=== PATIENT | female | born 1960 | race Two or more races ===

== ENCOUNTER 2021-12-24 05:42 | Emergency (ER) | payer MEDICAID ==
[~2021-12-24] VITALS: Ht 170.2 cm; Wt 68.0 kg
[2021-12-24] MEDS ORDERED: cloNIDine HCL 0.1 MG TAB PO ONE (06:45)
[2021-12-24 07:01] LABS: Basophils # (auto) 0.1 10 ^3/uL (0-0.2); Basophils % (auto) 0.9 % (0.0-2.0); Eosinophils # (auto) 0.2 10 ^3/uL (0-0.8); Hematocrit 43.8 % (36.0-46.0); Lymphocytes # (auto) 1.8 10 ^3/uL (0.4-5.4); Lymphocytes % (auto) 23.9 % (10.0-50.0); Mean Corpuscular Hemoglobin 29.1 pg (28.0-32.0); Mean Corpuscular Hgb Conc. 34.2 g/dL (32.0-36.0); Mean Corpuscular Volume 85.2 fL (80.0-100.0); Monocytes # (auto) 0.6 10 ^3/uL (0-1.3); Monocytes % (auto) 7.6 % (0.0-12.0); Neutrophils # (auto) 4.9 10 ^3/uL (1.6-8.6); Neutrophils % (auto) 64.6 % (37.0-80.0); Nucleated Red Blood Cells % 0.1 %; Red Blood Cells 5.14 10^6/uL (4.0-5.20); White Blood Cell 7.6 10^3/uL (4.4-10.8)
[2021-12-24 07:12] LABS: Albumin 4.1 g/dL (3.4-5.0); BUN/Creatinine Ratio 12.7; Calcium 8.9 mg/dL (8.5-10.1); Magnesium 2.5 mg/dL (1.6-2.6); Potassium 3.6 mmol/L (3.5-5.1)
[2021-12-24 07:15] LABS: Bilirubin, Total 0.6 mg/dL (0.2-1.0); Total Protein 7.6 g/dL (6.4-8.2)
[2021-12-24 07:25] LABS: INR 0.97 (0.9-1.15)
[2021-12-24 08:01] LABS: Urine Bacteria MANY /hpf (None Seen); Urine Blood Negative /uL (Negative); Urine Specific Gravity 1.006 (1.001-1.035); Urine WBC 1 /hpf (0 - 5)
[2021-12-24] MEDS ORDERED: LOSA25TA38 PO (08:17)
[2021-12-24 08:45] VITALS: BP 152/94
== END 2021-12-24 08:56 | disposition home or self-care (01) ==
LOC: ER 05:42 → EDBD 05:42 → ER 08:56
DX: I16.0 Hypertensive urgency (principal); E78.5 Hyperlipidemia, unspecified; Z90.49 Acquired absence of other specified parts of digestive tract; Z90.710 Acquired absence of both cervix and uterus; Z90.89 Acquired absence of other organs
CPT/HCPCS: 36415; 70450; 71045; 80053; 81001; 83735; 84484; 85025; 85610; 85730; 93005

== ENCOUNTER 2022-01-09 23:53 | Inpatient (IN) | payer MEDICAID ==
[~2022-01-09] VITALS: Ht 154.9 cm; Wt 69.8 kg
[~2022-01-09 23:53] MED LIST: LOSA25TA38 PO
[2022-01-10] MEDS ORDERED: ACYCLOVIR 400 MG TAB PO ONE (02:15)
[2022-01-10] MEDS ORDERED: LABETALOL HCL 5 MG/ML 4ML SYRINGE IV ONE ×2 (02:15→06:15)
[2022-01-10] MEDS ORDERED: predniSONE 20 MG TAB PO ONE (02:15)
[2022-01-10 02:16] LABS: Basophils # (auto) 0.1 10 ^3/uL (0-0.2); Basophils % (auto) 0.7 % (0.0-2.0); Eosinophils # (auto) 0.2 10 ^3/uL (0-0.8); Eosinophils % (auto) 2.1 % (0.0-7.0); Hematocrit 42.2 % (36.0-46.0); Hemoglobin 14.4 g/dL (12.2-16.2); Lymphocytes # (auto) 1.5 10 ^3/uL (0.4-5.4); Mean Corpuscular Hemoglobin 28.7 pg (28.0-32.0); Mean Corpuscular Hgb Conc. 34.1 g/dL (32.0-36.0); Mean Corpuscular Volume 84.1 fL (80.0-100.0); Monocytes # (auto) 0.6 10 ^3/uL (0-1.3); Monocytes % (auto) 6.9 % (0.0-12.0); Neutrophils # (auto) 6.9 10 ^3/uL (1.6-8.6); Neutrophils % (auto) 74.3 % (37.0-80.0); Red Blood Cells 5.02 10^6/uL (4.0-5.20); Red Cell Distribution Width 12.8 % (11.8-14.3); White Blood Cell 9.3 10^3/uL (4.4-10.8)
[2022-01-10 02:32] LABS: Albumin 3.8 g/dL (3.4-5.0); BUN/Creatinine Ratio 15.4; Calcium 8.4 mg/dL (8.5-10.1); Magnesium 2.3 mg/dL (1.6-2.6); Potassium 3.9 mmol/L (3.5-5.1)
[2022-01-10 02:35] LABS: Bilirubin, Total 0.4 mg/dL (0.2-1.0); Total Protein 7.5 g/dL (6.4-8.2)
[2022-01-10] MEDS ORDERED: ACYC-163 PO (05:54)
[2022-01-10] MEDS ORDERED: PRED20TA2 PO (05:54)
[2022-01-10 06:38] LABS: Alcohol, Urine < 3.0 mg/dL (0-10); Amphetamine Screen, Urine NEGATIVE (NEGATIVE); Barbiturate Scree,Urine NEGATIVE (NEGATIVE); Benzodiazephine Screen, Urine NEGATIVE (NEGATIVE); Cannabinoid Screen, Urine NEGATIVE (NEGATIVE); Cocaine Screen, Urine NEGATIVE (NEGATIVE); Opiate Scree,Urine NEGATIVE (NEGATIVE); Phencyclidine Screen, Urine NEGATIVE (NEGATIVE)
[2022-01-10] MEDS ORDERED: amLODIPine BESYLATE 5 MG TAB PO ONE (08:30)
[2022-01-10 09:49] LABS: Urine Bacteria NONE SEEN /hpf (None Seen); Urine Blood Negative /uL (Negative); Urine Specific Gravity 1.006 (1.001-1.035); Urine WBC <1 /hpf (0 - 5)
[2022-01-10] MEDS ORDERED: cloNIDine HCL 0.1 MG TAB PO ONE (12:00)
[2022-01-10] MEDS ORDERED: MORPHINE SULFATE INJ 2 MG/ml SYRG IV PRN (12:00)
[2022-01-10] MEDS ORDERED: LOSARTAN POTASSIUM 50 MG TAB PO ONE (12:00)
[2022-01-10] MEDS ORDERED: METOPROLOL SUCCINATE XL 50 MG TAB PO ONE (12:00)
[2022-01-10] MEDS ORDERED: NITROGLYCERIN 0.4 MG SL TAB SL PRN (12:00)
[2022-01-10] MEDS ORDERED: HCTZ 25 MG TAB PO ONE (12:00)
[2022-01-10] MEDS: hydrALAZINE HCL 20 MG/ML VL IV PRN ×2 (15:30→22:47)
[2022-01-10 22:30] VITALS: BP 161/95
[2022-01-11 04:30] VITALS: BP 138/82
[2022-01-11 09:00] VITALS: BP 167/95
[2022-01-11] MEDS: HCTZ 25 MG TAB PO SCH (10:18)
[2022-01-11] MEDS: LOSARTAN POTASSIUM 50 MG TAB PO SCH (10:18)
[2022-01-11] MEDS: METOPROLOL SUCCINATE XL 50 MG TAB PO SCH (10:19)
[2022-01-11] MEDS ORDERED: ACETAMINOPHEN 500 MG TAB PO PRN (11:00)
[2022-01-11 13:00] VITALS: BP 161/95
[2022-01-11 17:00] VITALS: BP 159/91
[2022-01-11] MEDS: hydrALAZINE HCL 20 MG/ML VL IV PRN (17:32)
[2022-01-11] MEDS ORDERED: LORazepam 2MG/ML-1ML VIAL IV PRN (21:00)
[2022-01-11 22:00] VITALS: BP 145/80
[2022-01-11] MEDS ORDERED: ATORVASTATIN 20 MG TAB PO SCH (22:00)
[2022-01-11 22:15] LABS: Cholesterol 211 mg/dL (< 200); HDL Cholesterol 53 mg/dL (40-59); LDL Cholesterol 137 mg/dL (< 100); Triglycerides 185 mg/dL (< 150)
[2022-01-12 05:00] VITALS: BP 122/89
[2022-01-12 07:00] LABS: Potassium 3.9 mmol/L (3.5-5.1)
[2022-01-12 07:08] LABS: BUN/Creatinine Ratio 31.4; Calcium 8.8 mg/dL (8.5-10.1)
[2022-01-12 09:00] VITALS: BP 144/95
[2022-01-12] MEDS ORDERED: HYDR25TA5 PO (09:38)
[2022-01-12] MEDS ORDERED: ATOR20TA50 PO (09:38)
[2022-01-12] MEDS ORDERED: LOSA-69 PO (09:38)
[2022-01-12] MEDS ORDERED: METO-6 PO (09:38)
[2022-01-12] MEDS: LOSARTAN POTASSIUM 50 MG TAB PO SCH (09:43)
[2022-01-12] MEDS: HCTZ 25 MG TAB PO SCH (09:44)
[2022-01-12] MEDS: METOPROLOL SUCCINATE XL 50 MG TAB PO SCH (09:44)
[2022-01-12] MEDS ORDERED: ASPirin 81 mg TAB PO SCH (10:00)
[2022-01-12 10:17] VITALS: BP 144/95
== END 2022-01-12 11:15 | disposition home or self-care (01) | DRG 199 ==
LOC: ER 23:53 → TELE 01-10 11:59 → TELE-CENTR 01-10 21:17 → CENTRAL 01-11 20:12
PROVIDERS: ADMIT Registered Nurse; ATTEND Internal Medicine
DX: I16.0 Hypertensive urgency (principal); E66.01 Morbid (severe) obesity due to excess calories; E78.5 Hyperlipidemia, unspecified; Z20.822 Contact with and (suspected) exposure to COVID-19; Z79.82 Long term (current) use of aspirin; Z79.899 Other long term (current) drug therapy; Z82.49 Family history of ischemic heart disease and other diseases of the circulatory system; Z90.710 Acquired absence of both cervix and uterus; Z90.49 Acquired absence of other specified parts of digestive tract; Z68.29 Body mass index [BMI] 29.0-29.9, adult
CPT/HCPCS: 36415; 70450; 71045; 80048; 80053; 80061; 80307; 81001; 82088; 83735; 84244; 84484; 85025; 93005; 93886; 93975; 96365; 96375; 96376; G0378; J3490

== ENCOUNTER 2023-11-10 15:38 | Inpatient (IN) | payer MEDICAID ==
[~2023-11-10] VITALS: Ht 154.9 cm; Wt 76.3 kg
[~2023-11-10 15:38] MED LIST changes: +ACYC1TAB2 PO; +ATOR20TA50 PO; +HYDR25TA5 PO; +LOSA-533 PO; +LOSA-534 PO; -LOSA25TA38 PO; +METO-6 PO; +PRED20TA2 PO
[2023-11-10 16:33] LABS: Basophils # (auto) 0.1 10 ^3/uL (0-0.2); Basophils % (auto) 0.5 % (0.0-2.0); Eosinophils # (auto) 0 10 ^3/uL (0-0.8); Eosinophils % (auto) 0.3 % (0.0-7.0); Hematocrit 43.8 % (36.0-46.0); Hemoglobin 14.6 g/dL (12.2-16.2); Lymphocytes # (auto) 1.8 10 ^3/uL (0.4-5.4); Lymphocytes % (auto) 16.5 % (10.0-50.0); Mean Corpuscular Hgb Conc. 33.2 g/dL (32.0-36.0); Mean Corpuscular Volume 84.2 fL (80.0-100.0); Monocytes # (auto) 0.5 10 ^3/uL (0-1.3); Monocytes % (auto) 4.3 % (0.0-12.0); Neutrophils # (auto) 8.7 10 ^3/uL (1.6-8.6); Neutrophils % (auto) 78.4 % (37.0-80.0); Nucleated Red Blood Cells % 0.1 %; Red Blood Cells 5.21 10^6/uL (4.0-5.20); Red Cell Distribution Width 14.5 % (11.8-14.3); White Blood Cell 11.1 10^3/uL (4.4-10.8)
[2023-11-10 16:52] LABS: Chloride 105 mmol/L (98-107); Sodium 137 mmol/L (136-145)
[2023-11-10 16:53] LABS: Anion Gap 7 (5-15); Calcium 9.8 mg/dL (8.7-10.4); Carbon Dioxide 25 mmol/L (20-30)
[2023-11-10 16:58] LABS: BUN/Creatinine Ratio 17.6 (10.0-20.0); Blood Urea Nitrogen 12 mg/dL (9-23); Glucose 131 mg/dL (74-106)
[2023-11-10] MEDS ORDERED: HYDROcodone-ACET 5/325MG TAB PO PRN (18:00)
[2023-11-10] MEDS ORDERED: DOCUSATE SOD 100 MG CAP PO PRN (18:00)
[2023-11-10] MEDS ORDERED: ONDANSETRON HCL 4 MG/2 ML VIAL IV PRN (18:00)
[2023-11-10] MEDS ORDERED: ACETAMINOPHEN 325 MG TAB PO PRN (18:00)
[2023-11-10] MEDS ORDERED: NITROGLYCERIN 0.4 MG SL TAB SL PRN (18:30)
[2023-11-10] MEDS ORDERED: MORPHINE SULFATE INJ 2 MG/ml SYRG IV PRN (18:30)
[2023-11-10] MEDS: METOPROLOL TARTRATE 25 MG TAB PO SCH (18:30)
[2023-11-10] MEDS ORDERED: hydrALAZINE HCL 20 MG/ML VL IV PRN (20:00)
[2023-11-10] MEDS ORDERED: DEXTROSE (50%) 50ML SYRG IV PRN (20:00)
[2023-11-10] MEDS ORDERED: MECLIZINE HCL 25 MG TAB PO PRN (20:15)
[2023-11-10] MEDS: SODIUM CHLORIDE 0.9% 1,000 ML IV SCH (20:46)
[2023-11-10] MEDS ORDERED: METOPROLOL TARTRATE 25 MG TAB PO SCH (22:00)
[2023-11-10] MEDS: ACCU-CHEK COMFORT CURVE STRIP VI SCH (22:37)
[2023-11-10] MEDS: InsuLIN REG 1unit/0.01ml Soln (100units/ml) SC SCH (22:48)
[2023-11-10] MEDS: ATORVASTATIN 20 MG TAB PO SCH (22:48)
[2023-11-10 23:21] LABS: Urine Bacteria FEW /hpf (None Seen); Urine Blood Negative /uL (Negative); Urine Clarity Clear (Clear); Urine Color Light-Yellow (Yellow); Urine Mucus FEW (None Seen); Urine Protein, UAD Negative (Negative); Urine Specific Gravity 1.031 (1.001-1.035); Urine Urobilinogen Normal (Negative); Urine WBC <1 /hpf (0 - 5)
[2023-11-11] MEDS ORDERED: hydrALAZINE HCL 20 MG/ML VL IV SCH
[2023-11-11 05:39] LABS: Alanine Aminotransferase 15 U/L (7-40); Albumin 4.5 g/dL (3.2-4.8); Alkaline Phosphatase 119 U/L (46-116); Anion Gap 8 (5-15); Aspartate Aminotransferase 9 U/L (13-40); BUN/Creatinine Ratio 14.4 (10.0-20.0); Basophils # (auto) 0 10 ^3/uL (0-0.2); Basophils % (auto) 0.3 % (0.0-2.0); Bilirubin, Total 1.1 mg/dL (0.2-1.0); Blood Urea Nitrogen 13 mg/dL (9-23); Carbon Dioxide 27 mmol/L (20-30); Chloride 105 mmol/L (98-107); Eosinophils # (auto) 0.1 10 ^3/uL (0-0.8); Eosinophils % (auto) 0.7 % (0.0-7.0); Glucose 157 mg/dL (74-106); Hematocrit 42.7 % (36.0-46.0); Hemoglobin 14.5 g/dL (12.2-16.2); Lymphocytes # (auto) 1.5 10 ^3/uL (0.4-5.4); Lymphocytes % (auto) 14.1 % (10.0-50.0); Mean Corpuscular Hemoglobin 28.7 pg (28.0-32.0); Mean Corpuscular Volume 84.4 fL (80.0-100.0); Monocytes # (auto) 0.8 10 ^3/uL (0-1.3); Monocytes % (auto) 7.3 % (0.0-12.0); Neutrophils % (auto) 77.6 % (37.0-80.0); Potassium 3.5 mmol/L (3.5-5.1); Red Blood Cells 5.06 10^6/uL (4.0-5.20); Red Cell Distribution Width 14.7 % (11.8-14.3); Sodium 140 mmol/L (136-145); Total Protein 7.3 g/dL (5.7-8.2); White Blood Cell 10.4 10^3/uL (4.4-10.8)
[2023-11-11 08:00] VITALS: TEMP 97.8
[2023-11-11 08:07] VITALS: PULSE 87; RESP 17; O2SAT 94
[2023-11-11 18:00] VITALS: RESP 17; O2SAT 96
[2023-11-11 18:11] VITALS: BP 135/70; PULSE 78
== END 2023-11-11 18:37 | disposition home or self-care (01) | DRG 199 ==
LOC: ER 15:38 → TELE 18:27
PROVIDERS: ADMIT Nurse Practitioner Family; ATTEND Nurse Practitioner Acute Care
DX: I16.9 Hypertensive crisis, unspecified (principal); D72.829 Elevated white blood cell count, unspecified; E11.65 Type 2 diabetes mellitus with hyperglycemia; E78.5 Hyperlipidemia, unspecified; Z82.49 Family history of ischemic heart disease and other diseases of the circulatory system; I10 Essential (primary) hypertension; Z90.710 Acquired absence of both cervix and uterus; Z90.49 Acquired absence of other specified parts of digestive tract
CPT/HCPCS: 36415; 71045; 80048; 80053; 81001; 82962; 83036; 84484; 85025; 93005; G0378; J1815